=== PATIENT | female | born 2000 | race Caucasian/White ===

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

== ENCOUNTER 2019-06-23 01:33 | Emergency (ER) | payer BC, OTHER ==
[2019-06-23] MEDS ORDERED: Ketorolac 30 MG/ML SDV IM ONE (02:49)
--- NOTE | 2019-06-23 02:55 | EDM.PDOC ---
ED HPI GENERAL MEDICAL PROBLEM - General Chief Complaint: Headache Stated Complaint: MIGRAINE Time Seen by Provider: 06/23/19 01:45 Source of Information: Reports: Patient, RN, RN Notes Reviewed History Limitations: Reports: No Limitations - History of Present Illness INITIAL COMMENTS - FREE TEXT/NARRATIVE: Patient presents to ER with complaint of migraine headache. Patient states the headache began 4-6 hours ago, she has used aspirin at home without help. Patient states she is sensitive to light, but sound is okay. Patient admits to nausea at times, no vomiting. Patient states she has had migraine headaches in the past, but is not on any medications for them. Onset: Today, Sudden Frontal Headache Pain Score (Numeric/FACES): 5 - Related Data Allergies Allergy/AdvReac Type Severity Reaction Status Date / Time No Known Allergies Allergy Verified 06/23/19 01:47 Home Meds: Home Meds . [No Known Home Meds] 07/13/17 [History] Past Medical History [employer] History: Reports: Spontaneous Neurological History: Reports: Migraines - Past Surgical History HEENT Surgical History: Reports: Tonsillectomy Social & Family History - Family History Family Medical History: Noncontributory Neurological: Reports: Migraines - Tobacco Use Smoking Status *Q: Current Every Day Smoker Years of Tobacco use: 4 Packs/Tins Daily: 0.3 - Caffeine Use Caffeine Use: Reports: Coffee, Soda, Tea - Recreational Drug Use Recreational Drug Use: No ED ROS GENERAL - Review of Systems Review Of Systems: Comprehensive ROS is negative, except as noted in HPI. - Physical Exam Exam: See Below Exam Limited By: No Limitations General Appearance: Alert, WD/WN, No Apparent Distress Eye Exam: Bilateral Eye: EOMI, Normal Inspection Ears: Normal External Exam, Hearing Grossly Normal Nose: Normal Inspection Throat/Mouth: Normal Inspection, Normal Voice, No Airway Compromise Head Exam: Atraumatic, Normocephalic Neck: Normal Inspection, Supple, Non-Tender, Full Range of Motion Respiratory/Chest: No Respiratory Distress, Lungs Clear, Normal Breath Sounds, No Accessory Muscle Use, Chest Non-Tender Cardiovascular: Normal Peripheral Pulses, Regular Rate, Rhythm, No Edema, No Gallop, No JVD, No Murmur, No Rub GI/Abdominal: Normal Bowel Sounds, Soft, Non-Tender, No Organomegaly, No Distention, No Abnormal Bruit, No Mass (Female) Exam: Deferred Rectal (Female) Exam: Deferred Neuro Exam (Abbreviated): Alert, Oriented, CN II-XII Intact, Normal Cognition, Normal Gait, Normal Reflexes, No Motor/Sensory Deficits Back Exam: Normal Inspection, Full Range of Motion, NT Extremities: Normal Inspection, Normal Range of Motion, Non-Tender, No Pedal Edema, Normal Capillary Refill Psychiatric: Normal Affect, Normal Mood Skin Exam: Warm, Dry, Intact, Normal Color, No Rash Course - Vital Signs Last Recorded V/S: Last Vital Signs Temp 96.8 F 06/23/19 03:15 Pulse 88 06/23/19 03:15 Resp 18 06/23/19 03:15 BP 129/67 06/23/19 03:15 Pulse Ox 99 06/23/19 03:15 - Orders/Labs/Meds Labs: Laboratory Tests 06/23/19 06/23/19 Range/Units 02:25 02:25 Urine Color Yellow (YELLOW) Urine Appearance Clear (CLEAR) Urine pH 5.0 (5.0-9.0) Ur Specific [place] 1.015 (1.005-1.030) Urine Protein Negative (NEGATIVE) Urine Glucose (UA) Negative (NEGATIVE) Urine Ketones Negative (NEGATIVE) Urine Occult Blood Negative (NEGATIVE) Urine Nitrite Negative (NEGATIVE) Urine Bilirubin Negative (NEGATIVE) Urine Urobilinogen 0.2 (0.2-1.0) mg/dL Ur Leukocyte Esterase Negative (NEGATIVE) Urine HCG, Qual Negative Meds: Medications Discontinued Medications Generic Name Dose Route Start Last Admin Trade Name Freq PRN Reason Stop Dose Admin Ketorolac Tromethamine 30 mg 06/23/19 02:49 06/23/19 02:59 Toradol IM 06/23/19 02:50 30 mg ONETIME ONE Administration Departure - Departure Time of Disposition: 03:20 Disposition: Home, Self-Care 01 Condition: Fair Clinical Impression: Migraine - Discharge Information *PRESCRIPTION DRUG MONITORING PROGRAM REVIEWED*: No *COPY OF PRESCRIPTION DRUG MONITORING REPORT IN PATIENT JOSE LUIS: No Instructions: Migraine Headache, [id number] Forms: ED Department Discharge Additional Instructions: take Benadryl when you get home drink plenty of fluids Follow-up with your primary care provider if no improvement with headache Return to the ER with any worsening of symptoms Sepsis Event Note - Evaluation Sepsis Screening Result: No Definite Risk - Focused Exam Vital Signs: Vital Signs Temp Pulse Resp BP Pulse Ox 06/23/19 03:15 96.8 F 88 18 129/67 99 06/23/19 01:36 96.2 F 86 17 141/75 H 100 Date Exam was Performed: 06/23/19 Time Exam was Performed: 03:20
[2019-06-23 03:16] VITALS: BP 129/67; PULSE 88
== END 2019-06-23 03:25 | disposition home or self-care (01) ==
LOC: DL.ED 01:33
DX: G43.909 Migraine, unspecified, not intractable, without status migrainosus (principal); F17.210 Nicotine dependence, cigarettes, uncomplicated
CPT/HCPCS: 81003; 81025; 96372; 99283; J1885

== ENCOUNTER 2019-07-22 14:09 | Emergency (ER) | payer BC ==
[2019-07-22 14:21] VITALS: BP 123/67; PULSE 92
--- NOTE | 2019-07-22 14:39 | EDM.PDOC ---
<Daphne Gannon - Last Filed: 07/22/19 14:52> ED HPI GENERAL MEDICAL PROBLEM - General Chief Complaint: Headache Stated Complaint: MIGRAINE Time Seen by Provider: 07/22/19 14:25 Source of Information: Reports: Patient History Limitations: Reports: No Limitations - History of Present Illness INITIAL COMMENTS - FREE TEXT/NARRATIVE: Patient presents to the ED by private vehicle with concerns of headache for the past 3 days. The patient states that she has been having migraines every other day for the past 1 month. These migraines typically last half to one full day. She describes pain as frontal, 3/10, throbbing. She denies knowledge of any alleviating or aggravating factors. The patient states that tylenol and ibuprofen do not alleviate the pain. 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 She also admits to occasional smoking. She denies frequent consumption of caffeine. She admits to use of ibuprofen or tylenol whenever she needs this for her headaches but cannot recall how often a week she will take this on average. The patient admits to occasional sinus congestion usually in the mornings upon waking. The patient reports that she does have an appointment with Teodora Carrillo NP on Saturday to discuss her headaches. The patient did present to the ED on 06/23/2019 with migraine-type headaches and was treated with toradol. The patient states today that the toradol did not provide any pain relief. Onset Date: 07/19/19 Duration: Constant Location: Reports: Head Quality: Reports: Throbbing Severity: Moderate Improves with: Reports: None Worsens with: Reports: None Associated Symptoms: Reports: No Other Symptoms Head Pain Score (Numeric/FACES): 3 - Related Data Allergies Allergy/AdvReac Type Severity Reaction Status Date / Time No Known Allergies Allergy Verified 07/22/19 14:21 Home Meds: Home Meds . 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 Neurological History: Reports: Migraines - Past Surgical History HEENT Surgical History: Reports: Tonsillectomy Social & Family History - Family History Family Medical History: Noncontributory Neurological: Reports: Migraines - Tobacco Use Smoking Status *Q: Current Some Day Smoker Years of Tobacco use: 4 Packs/Tins Daily: 0.1 - Caffeine Use Caffeine Use: Reports: Coffee, Soda, Tea - Recreational Drug Use Recreational Drug Use: No ED ROS GENERAL - Review of Systems Review Of Systems: See Below Constitutional: Denies: Fever HEENT: Reports: Glasses GI/Abdominal: Denies: Abdominal Pain Musculoskeletal: Denies: Neck Pain Neurological: Reports: Headache. Denies: Dizziness - Physical Exam Exam: See Below Exam Limited By: No Limitations General Appearance: Alert, No Apparent Distress Eye Exam: Bilateral Eye: PERRL Ears: Normal External Exam, Normal Canal, Hearing Grossly Normal, Normal TMs Nose: Normal Inspection, Normal Mucosa Throat/Mouth: Normal Inspection Head Exam: Atraumatic, Normocephalic Neck: Full Range of Motion Respiratory/Chest: No Respiratory Distress, Lungs Clear, Normal Breath Sounds Cardiovascular: Regular Rate, Rhythm, No Murmur Neuro Exam (Abbreviated): Oriented, No Motor/Sensory Deficits Psychiatric: Normal Affect Course - Vital Signs Last Recorded V/S: Last Vital Signs Temp 98.8 F 07/22/19 14:18 Pulse 92 07/22/19 14:18 Resp 14 07/22/19 14:18 BP 123/67 07/22/19 14:18 Pulse Ox 100 07/22/19 14:18 Departure - Departure Time of Disposition: 14:53 Disposition: Home, Self-Care 01 Condition: Good Clinical Impression: Headache above the eye region - Discharge Information *PRESCRIPTION DRUG MONITORING PROGRAM REVIEWED*: Not Applicable *COPY OF PRESCRIPTION DRUG MONITORING REPORT IN PATIENT JOSE LUIS: Not Applicable Instructions: Migraine Headache, [id number] Forms: ED Department Discharge Additional Instructions: Rx: Naprosyn, diphenhydramine Recommend eye examination, follow-up with PCP on Saturday to discuss headaches Headache diary Avoid chocolates, caffeine, smoking, as potential triggers for headaches Sepsis Event Note - Evaluation Sepsis Screening Result: No Definite Risk - Focused Exam Vital Signs: Vital Signs Temp Pulse Resp BP Pulse Ox 07/22/19 14:18 98.8 F 92 14 123/67 100 Date Exam was Performed: 07/22/19 Time Exam was Performed: 14:52 <Yousif Church - Last Filed: 07/22/19 15:03> Course - Re-Assessments/Exams Free Text/Narrative Re-Assessment/Exam: 07/22/19 15:03 I personally performed or re-performed the physical examination and medical decision making. I have verified all student documentation or findings, including history, physical exam and/or medical decision making. Sepsis Event Note - Focused Exam Date Exam was Performed: 07/22/19 Time Exam was Performed: 15:03
--- NOTE | 2019-07-22 14:58 | CR ---
EXAMINATION: Sinus Comp Min 3V SEX: Female AGE: 19 years CLINICAL HISTORY: 19-year-old female complaining of recurring FRONTAL HEADACHES. INTERPRETATION: Negative. 1. Symmetric clear pneumatization of the paranasal and mastoid sinuses. 2. No mucoperiosteal inflammation, antral mass lesion or pathologic air-fluid levels. 3. Nasal septum is straight in the midline. Symmetric normal nonedematous nasal turbinates. 4. No foreign bodies. 5. No facial bone fractures. Satisfactory symmetric dental occlusion.
== END 2019-07-22 15:02 | disposition home or self-care (01) ==
LOC: DL.ED 14:09
DX: R51 Headache (principal); F17.210 Nicotine dependence, cigarettes, uncomplicated; Z98.890 Other specified postprocedural states
CPT/HCPCS: 99284-25

== ENCOUNTER 2019-12-29 09:02 | Emergency (ER) | payer BC, OTHER ==
--- NOTE | 2019-12-29 09:13 | EDM.PDOC ---
ED HPI GENERAL MEDICAL PROBLEM - General Chief Complaint: Lower Extremity Injury/Pain Stated Complaint: [id number] DISLOCATED RIGHT KNEE Time Seen by Provider: 12/29/19 09:11 Source of Information: Reports: Patient, Old Records, RN, RN Notes Reviewed History Limitations: Reports: No Limitations - History of Present Illness INITIAL COMMENTS - FREE TEXT/NARRATIVE: Pt presents to ER with c/o right knee pain. She states that she was at a alliance party on Saturday, December 24, when she climbed up on a tailgate and her right knee cap popped out of place causing her to fall to the ground. She states that they put it back into place, but it is still hurting and feels like it could slide back out of place with any little movement of the knee. Denies any other injury. Onset: Sudden Onset Date: 12/25/19 Duration: Resolved Prior to Arrival Location: Reports: Lower Extremity, Right Quality: Reports: Ache Severity: Moderate Improves with: Reports: Immobilization Worsens with: Reports: Movement Associated Symptoms: Reports: No Other Symptoms Right Knee Pain Score (Numeric/FACES): 7 - Related Data Allergies Allergy/AdvReac Type Severity Reaction Status Date / Time No Known Allergies Allergy Verified 12/29/19 09:16 Home Meds: Home Meds . 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 ED EXAM, GENERAL - Physical Exam Exam: See Below Exam Limited By: No Limitations General Appearance: Alert, No Apparent Distress, Obese Respiratory/Chest: No Respiratory Distress Cardiovascular: Normal Peripheral Pulses Extremities: Normal Capillary Refill, Joint Swelling (Mild swelling of right knee with laxity of the patella to lateral distraction, and generalized knee tenderness. No visible bruising, redness, or deformity. Unable to assess ACL due to pain and decreased ROM.), Limited Range of Motion (Rt knee due to pain.). No: Increased Warmth, Redness Neurological: Alert, Oriented, No Motor/Sensory Deficits Psychiatric: Normal Mood Skin Exam: Warm, Dry, Intact, Normal Color, No Rash ED TRAUMA EXTREMITY PROCEDURES - Splinting Right Lower Extremity Splint Site: Rt knee Pre-Procedure NV Status: Normal Post-Procedure NV Status: Normal Splint Material: Velcro Splint Design: Knee Immobilizer Applied & Form Fitted By: Nurse Provider Post-Splint Application NV Check: NV Status Normal, Good Position Complications: No Course - Vital Signs Last Recorded V/S: Last Vital Signs Temp 98.0 F 12/29/19 09:12 Pulse 99 12/29/19 09:12 Resp 18 12/29/19 09:12 BP 132/70 12/29/19 09:12 Pulse Ox 100 12/29/19 09:12 - Orders/Labs/Meds Orders: Active Orders 24 hr Category Date Time Status Immobilizer [RC] ASDIRECTED Care 12/29/19 09:17 Ordered Departure - Departure Time of Disposition: 09:23 Disposition: Home, Self-Care 01 Condition: Good Clinical Impression: Subluxation of right patella Qualifiers: Encounter type: initial encounter Qualified Code(s): S83.001A - Unspecified subluxation of right patella, initial encounter - Discharge Information *PRESCRIPTION DRUG MONITORING PROGRAM REVIEWED*: Not Applicable *COPY OF PRESCRIPTION DRUG MONITORING REPORT IN PATIENT JOSE LUIS: Not Applicable Instructions: Patellar Dislocation and Subluxation, Patellar Dislocation and Subluxation, Phase I Rehab-SportsMed, How to Use a Knee Immobilizer, [id number] Forms: ED Department Discharge Additional Instructions: Rx: Naprosyn 500mg *Take with meals. Wear knee immobilizer for 2 weeks. May remove to sleep and shower. Follow up in clinic in 2 week for recheck and referral to orthopedic surgeon if needed. Sepsis Event Note (ED) - Focused Exam Vital Signs: Vital Signs Temp Pulse Resp BP Pulse Ox 12/29/19 09:12 98.0 F 99 18 132/70 100 - My Orders Last 24 Hours: My Active Orders 12/29/19 09:17 Immobilizer [RC] ASDIRECTED - Assessment/Plan Last 24 Hours: My Active Orders 12/29/19 09:17 Immobilizer [RC] ASDIRECTED
[2019-12-29 09:16] VITALS: BP 132/70; PULSE 99
== END 2019-12-29 09:55 | disposition home or self-care (01) ==
LOC: DL.ED 09:02
DX: S83.001A Unspecified subluxation of right patella, initial encounter (principal); E66.9 Obesity, unspecified; Z68.41 Body mass index [BMI] 40.0-44.9, adult; W17.89XA Other fall from one level to another, initial encounter
CPT/HCPCS: 99283

== ENCOUNTER 2020-08-26 21:25 | Emergency (ER) | payer SELFPAY ==
[2020-08-26] MEDS ORDERED: Benzonatate 100 MG Cap PO ONE (21:26)
[2020-08-26 21:55] VITALS: BP 111/65; PULSE 104
[2020-08-26 22:27] LABS: CORONAVIRUS COVID-19 NAA POSITIVE (NEGATIVE)
[2020-08-26] MEDS ORDERED: Dexamethasone 4 MG/ML SDV IM ONE (22:56)
--- NOTE | 2020-08-26 23:03 | EDM.PDOC ---
ED HPI GENERAL MEDICAL PROBLEM - General Chief Complaint: Respiratory Problem Stated Complaint: COUGH,RUNNY, STUFFY NOSE, HEADACHE, CHILLS Time Seen by Provider: 08/26/20 22:00 Source of Information: Reports: Patient, RN, RN Notes Reviewed History Limitations: Reports: No Limitations - History of Present Illness INITIAL COMMENTS - FREE TEXT/NARRATIVE: Patient presents to the ED via personal vehicle with complaints of general malaise, cough, and sore throat. The patient states her symptoms began one day ago and have progressively worsened in that time. Additionally, she attests to shaking chills, headache, fatigue, and mild shortness of breath with exertion. She has not taken any medication for her symptoms. She denies a history of COVID and has not received any COVID vaccination. She denies contact with persons diagnosed with an active COVID infection. She denies tobacco, alcohol, or recreational drug use. - Related Data Allergies Allergy/AdvReac Type Severity Reaction Status Date / Time No Known Allergies Allergy Verified 12/29/19 09:16 Home Meds: Home Meds . 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 Musculoskeletal History: Reports: None Neurological History: Reports: Migraines Psychiatric History: Reports: None Endocrine/Metabolic History: Reports: Obesity/BMI 30+ Hematologic History: Reports: None Immunologic History: Reports: None Oncologic (Cancer) History: Reports: None Dermatologic History: Reports: None - Infectious Disease History Infectious Disease History: Reports: None - Past Surgical History Head Surgeries/Procedures: Reports: None HEENT Surgical History: Reports: Tonsillectomy Social & Family History - Family History Family Medical History: No Pertinent Family History Neurological: Reports: Migraines - Tobacco Use Tobacco Use Status *Q: Never Tobacco User - Caffeine Use Caffeine Use: Reports: None - Recreational Drug Use Recreational Drug Use: No - Living Situation & Occupation Living situation: Reports: with Family ED ROS GENERAL - Review of Systems Review Of Systems: Comprehensive ROS is negative, except as noted in HPI. ED EXAM, GENERAL - Physical Exam Exam: See Below Exam Limited By: No Limitations General Appearance: Alert, Obese, Other (Ill appearing) Eye Exam: Bilateral Eye: Conjunctival Injection, EOMI, PERRL (3mm) Ears: Normal External Exam Ear Exam: Bilateral Ear: Auricle Normal, Canal Normal, TM normal Nose: Normal Mucosa, No Blood, Clear Rhinorrhea Throat/Mouth: Normal Lips, Normal Teeth, Normal Gums, Normal Voice, No Airway Compromise. No: Normal Oropharynx (Dry mucous membranes) Head: Atraumatic, Normocephalic Neck: Normal Inspection, Supple, Non-Tender, Full Range of Motion. No: Lymphadenopathy (L), Lymphadenopathy (R) Respiratory/Chest: No Respiratory Distress, No Accessory Muscle Use, Chest Non- Tender, Rales (To right mid-lobe). No: Crackles, Rhonchi, Wheezing Cardiovascular: Regular Rate, Rhythm, No Edema, No Gallop, No JVD, No Murmur, No Rub, Tachycardia Peripheral Pulses: 2+: Radial (L), Radial (R) GI/Abdominal: Normal Bowel Sounds, Soft, Non-Tender, No Distention, No Mass, Pelvis Stable (Female) Exam: Deferred Rectal (Female) Exam: Deferred Back Exam: Normal Inspection, Full Range of Motion Extremities: Normal Inspection, Normal Range of Motion, Non-Tender, Normal Capillary Refill, No Pedal Edema Neurological: Alert, Oriented, CN II-XII Intact, Normal Cognition, Normal Gait, No Motor/Sensory Deficits Psychiatric: Normal Affect, Normal Mood Skin Exam: Warm, Dry, Intact, Normal Color, No Rash. No: Ecchymosis, Erythema, Jaundice, Mottled, Pallor, Petechiae Course - Vital Signs Last Recorded V/S: Last Vital Signs Temp 98.1 F 08/26/20 21:35 Pulse 104 H 08/26/20 21:35 Resp 18 08/26/20 21:35 BP 111/65 08/26/20 21:35 Pulse Ox 99 08/26/20 21:35 - Orders/Labs/Meds Labs: Laboratory Tests 08/26/20 Range/Units 21:44 Influenza Type A RNA Negative (NEGATIVE) Influenza Type B RNA Negative (NEGATIVE) SARS-CoV-2 RNA ([facility]) Positive H (NEGATIVE) Meds: Medications Discontinued Medications Generic Name Dose Route Start Last Admin Trade Name Freq PRN Reason Stop Dose Admin Benzonatate Confirm 08/26/20 23:21 08/27/20 00:07 Benzonatate 100 Mg Cap Administered 08/26/20 23:22 Not Given Dose 300 mg .ROUTE .STK-MED ONE Benzonatate 100 mg 08/26/20 21:26 Benzonatate 100 Mg Cap PO 08/26/20 21:27 .STK-MED ONE Dexamethasone 6 mg 08/26/20 22:56 08/27/20 00:07 Dexamethasone 4 Mg/Ml Sdv IM 08/26/20 22:57 6 mg ONETIME ONE Administration - Radiology Interpretation Free Text/Narrative:: [facility] [place] [facility] Final Radiology Report Call: [phone] assistance Online chat: [email or web address] Name: WERNER YANG Age: 20Years F Date: 08/26/2020 SSN: -- : 2000 Study: CR CHEST 1V FRONTAL Requesting Physician: Christiana Duvall Images: 1 Addl Studies: Provided Clinical History: COVID +; Rale in right middle lobe Contrast: Contrast Medium: Contrast Amount: Contrast Method: CONFIDENTIALITY STATEMENT This report is intended only for use by the referring physician, and only in accordance with law. If you received this in error, call [phone]. Page 1 of 1 PROCEDURE INFORMATION: Exam: XR Chest Exam date and time: 08/26/2020 11:22 PM Age: 20 years old Clinical indication: Other: Covid; Additional info: Covid +; Rale in right middle lobe TECHNIQUE: Imaging protocol: XR of the chest. Views: 1 view. COMPARISON: CR Chest 2V 07/14/2017 12:53 AM FINDINGS: Lungs: Unremarkable. No consolidation. Pleural spaces: Unremarkable. No pleural effusion. No pneumothorax. Heart/Mediastinum: Unremarkable. No cardiomegaly. Bones/joints: Unremarkable. IMPRESSION: No acute findings. Thank you for allowing us to participate in the care of your patient. Dictated and Authenticated by: Everett León DO 08/26/2020 11:43 PM Central Time ([place] & [place]) - Re-Assessments/Exams Free Text/Narrative Re-Assessment/Exam: 08/26/20 COVID positive; Influenza negative. CXR unremarkable for acute processes, no indication of ground glass opacities. Will treat shortness of breath with Dexamethasone and cough with Tessalon Perles. As patient is not experiencing gastrointestinal symptoms, will refrain from blood work at this time. Discussed supportive cares for URI from COVID, as well as expected length of illness and guidelines for quarantine. Red flag signs and symptoms which would warrant reevaluation reviewed. Patient verbalized understanding and agreement with the plan of care. Departure - Departure Time of Disposition: 23:59 Disposition: Home, Self-Care 01 Condition: Good Clinical Impression: COVID-19 virus infection, Advice given about COVID-19 virus infection - Discharge Information *PRESCRIPTION DRUG MONITORING PROGRAM REVIEWED*: Not Applicable *COPY OF PRESCRIPTION DRUG MONITORING REPORT IN PATIENT JOSE LUIS: Not Applicable Instructions: COVID-19 Frequently Asked Questions, COVID-19 Vaccine Information, What You Should Know About COVID-19 to Protect Yourself and Others - [facility], 10 Things You Can Do to Manage Your COVID-19 Symptoms at Home - [facility] Forms: ED Department Discharge Additional Instructions: Rx: Tessalon Rx: Dexamethasone 1.) Follow the [facility] guidelines regarding quarantine with an active COVID infection; quarantine is recommended for 14 days from onset of symptoms. 2.) You may take acetaminophen (Tylenol) 650mg every six hours for headache, body aches, or fever. You may also take ibuprofen (Motrin/Advil) 400mg every six hours for headache, body aches, fever. You may stagger these medications so you are taking a dose every three hours. 3.) Drink plenty of water to stay hydrated; small frequent sips are best. 4.) Eat a bland, stomach-friendly diet; avoid spicy, greasy, high-fat foods Sepsis Event Note (ED) - Evaluation Sepsis Screening Result: No Definite Risk
[2020-08-26] MEDS ORDERED: Benzonatate 100 MG Cap ONE (23:21)
--- NOTE | 2020-08-26 23:43 | CR ---
PROCEDURE INFORMATION: Exam: XR Chest Exam date and time: 08/26/2020 11:22 PM Age: 20 years old Clinical indication: Other: Covid; Additional info: Covid +; Rale in right middle lobe TECHNIQUE: Imaging protocol: XR of the chest. Views: 1 view. COMPARISON: CR Chest 2V 07/14/2017 12:53 AM FINDINGS: Lungs: Unremarkable. No consolidation. Pleural spaces: Unremarkable. No pleural effusion. No pneumothorax. Heart/Mediastinum: Unremarkable. No cardiomegaly. Bones/joints: Unremarkable. IMPRESSION: No acute findings.
== END 2020-08-27 00:10 | disposition home or self-care (01) ==
LOC: DL.ED 21:25
DX: U07.1 COVID-19 (principal); E66.9 Obesity, unspecified; Z68.30 Body mass index [BMI] 30.0-30.9, adult
CPT/HCPCS: 0240U; 71045; 96372; 99283; 99285-25; A9270-GY; J1100

== ENCOUNTER 2024-03-02 00:05 | Emergency (ER) | payer SELFPAY ==
[2024-03-02 00:29] VITALS: BP 126/69; PULSE 88
[2024-03-02] MEDS: Dexamethasone 4 MG/ML SDV PO ONE (00:40)
[2024-03-02] MEDS: Amoxicillin 500 MG Cap PO ONE (01:07)
== END 2024-03-02 01:10 | disposition home or self-care (01) ==
LOC: DL.ED 00:05
DX: J02.9 Acute pharyngitis, unspecified (principal); E66.9 Obesity, unspecified; Z68.29 Body mass index [BMI] 29.0-29.9, adult; Z86.16 Personal history of COVID-19; F17.200 Nicotine dependence, unspecified, uncomplicated
CPT/HCPCS: 87081; 87430; 99283; A9270-GY; J1100

== ENCOUNTER 2024-07-23 09:40 | Emergency (ER) | payer SELFPAY ==
[2024-07-23 09:59] VITALS: BP 131/76; PULSE 90
== END 2024-07-23 10:11 | disposition home or self-care (01) ==
LOC: DL.ED 09:40
DX: O9A.211 Injury, poisoning and certain other consequences of external causes complicating pregnancy, first trimester (principal); S09.90XA Unspecified injury of head, initial encounter; Z86.16 Personal history of COVID-19; W17.89XA Other fall from one level to another, initial encounter; Z3A.01 Less than 8 weeks gestation of pregnancy
CPT/HCPCS: 99283

== ENCOUNTER 2025-03-15 11:28 | Inpatient (IN) | payer MEDICAID ==
[2025-03-15 13:59] LABS: APPEARANCE,URINE CLEAR (CLEAR); GLUCOSE,URINE NEGATIVE (NEGATIVE); OCCULT BLOOD,URINE NEGATIVE (NEGATIVE)
[2025-03-15] MEDS ORDERED: Oxytocin/Lactated Ringers 30 UNIT/500 ML BAG IV SCH (14:15)
[2025-03-15] MEDS ORDERED: Carboprost Tromethamine 250 MCG/1 mL Vial IM PRN (14:15)
[2025-03-15] MEDS ORDERED: Sodium Chloride 0.9% 10 ML Syringe FLUSH PRN (14:15)
[2025-03-15 14:22] LABS: CREATININE,URINE RAND < 13.00 mg/dL (No establ ref range); PROTEIN,URINE RANDOM < 6.0 mg/dL (0.0-11.9)
[2025-03-15 15:29] LABS: PLATELET COUNT,PLT 348.0 10^3/uL (150-450); RED BLOOD CELL COUNT 4.66 10^6/uL (4.2-5.4); WHITE BLOOD CELL COUNT,WBC 14.7 10^3/uL (5.0-10.0)
[2025-03-15 15:48] LABS: ALANINE AMINOTRANSFERASE,ALT 24.0 U/L (14-59); ASPARTATE AMNIOTRANSFERASE,AST 24.0 U/L (15-37); BILIRUBIN TOTAL 0.6 mg/dL (0.2-1.0); BLOOD UREA NITROGEN,BUN 10.0 mg/dL (7-18); CARBON DIOXIDE,CO2 24.0 mmol/L (21-32); CHLORIDE,CL 103.0 mmol/L (98-107); CREATININE 0.54 mg/dL (0.55-1.02); EST CRCL DRUG DOSING (CG) 143.31 mL/min; GLUCOSE RANDOM 110.0 mg/dL (70-99); POTASSIUM,K 4.1 mmol/L (3.5-5.1); PROTEIN TOTAL,TP 7.3 g/dL (6.4-8.2); SODIUM,NA 138.0 mmol/L (136-145)
[2025-03-15 15:49] LABS: A/G RATIO 0.52; ESTIMATED GFR 131.0 mL/min (>=60)
[2025-03-15] MEDS: Lactated Ringers 1,000 ML IV SCH (15:50)
[2025-03-15] MEDS: Oxytocin/Normal Saline 30 UNIT/500 ML BAG IV SCH (15:52)
[2025-03-16] MEDS: Nalbuphine HCl 10 MG/ 1ML Amp IM PRN (00:52)
[2025-03-16] MEDS: Lactated Ringers 1,000 ML IV ONE (03:05)
[2025-03-16] MEDS: Ondansetron 4 MG/2 ML SDV IVPUSH PRN (06:35)
[2025-03-16 08:23] LABS: PLATELET COUNT,PLT 303.0 10^3/uL (150-450); RED BLOOD CELL COUNT 4.32 10^6/uL (4.2-5.4); WHITE BLOOD CELL COUNT,WBC 17.7 10^3/uL (5.0-10.0)
[2025-03-16 08:42] LABS: ALANINE AMINOTRANSFERASE,ALT 18.0 U/L (14-59); ASPARTATE AMNIOTRANSFERASE,AST 12.0 U/L (15-37); BLOOD UREA NITROGEN,BUN 8.0 mg/dL (7-18); CREATININE 0.63 mg/dL (0.55-1.02); EST CRCL DRUG DOSING (CG) 122.83 mL/min; LACTATE DEHYDROGENASE,LDH 103.0 U/L (81-234)
[2025-03-16 08:49] LABS: ESTIMATED GFR 126.0 mL/min (>=60)
[2025-03-16 11:45] LABS: APPEARANCE,URINE CLEAR (CLEAR); GLUCOSE,URINE NEGATIVE (NEGATIVE); OCCULT BLOOD,URINE NEGATIVE (NEGATIVE)
[2025-03-16 12:01] LABS: CREATININE,URINE RAND 93.68 mg/dL (No establ ref range); PROTEIN CREATININE RATIO,URINE 121.7 mg/g (<150.0); PROTEIN,URINE RANDOM 11.4 mg/dL (0.0-11.9)
[2025-03-16] MEDS ORDERED: ePHEDrine 50 MG/ML SDV IVPUSH PRN (15:55)
[2025-03-16] MEDS ORDERED: Ropivacaine 200 MG in Premix Bag 1 BAG EPIDUR SCH (16:00)
[2025-03-17] MEDS ORDERED: Witch Hazel Medicated Pads 100/Jar TOP PRN (05:59)
[2025-03-17] MEDS ORDERED: Oxytocin 10 Units/1 ML SDV IM PRN (05:59)
[2025-03-17] MEDS: Prenatal Multivitamin with Calcium/Folic Acid/Iron Tab PO SCH (08:36)
[2025-03-17] MEDS: Benzocaine/Menthol 20%-0.5% Spray 78 GM Cannister TOP PRN (08:37)
[2025-03-18 06:52] LABS: PLATELET COUNT,PLT 244.0 10^3/uL (150-450); RED BLOOD CELL COUNT 3.43 10^6/uL (4.2-5.4); WHITE BLOOD CELL COUNT,WBC 14.9 10^3/uL (5.0-10.0)
[2025-03-18 10:03] VITALS: BP 135/78
[2025-03-18 10:04] VITALS: PULSE 80
== END 2025-03-18 10:25 | disposition home or self-care (01) | DRG 807 ==
LOC: DL.OBCHECK 11:28 → DL.OB 14:15 → OBSVTOIN 03-17 05:31 → DL.MS 03-18 07:36
PROVIDERS: ADMIT Family Medicine; ATTEND Family Medicine
PROC: 10H07YZ Insertion of Other Device into Products of Conception, Via Natural or Artificial Opening (ICD-10-PCS; principal; 2025-03-15)
PROC: 3E033VJ Introduction of Other Hormone into Peripheral Vein, Percutaneous Approach (ICD-10-PCS; principal; 2025-03-15)
PROC: 10E0XZZ Delivery of Products of Conception, External Approach (ICD-10-PCS; principal; 2025-03-15)
PROC: 10907ZC Drainage of Amniotic Fluid, Therapeutic from Products of Conception, Via Natural or Artificial Opening (ICD-10-PCS; principal; 2025-03-15)
PROC: 3E0R3BZ Introduction of Anesthetic Agent into Spinal Canal, Percutaneous Approach (ICD-10-PCS; principal; 2025-03-15)
DX: O99.214 Obesity complicating childbirth (principal); Z37.0 Single live birth; Z3A.39 39 weeks gestation of pregnancy; Z90.49 Acquired absence of other specified parts of digestive tract; Z98.890 Other specified postprocedural states; Z79.899 Other long term (current) drug therapy; Z86.16 Personal history of COVID-19; Z87.891 Personal history of nicotine dependence
CPT/HCPCS: 36415; 51702; 59409; 59414; 80053; 81003; 82274; 82565; 82570; 83615; 84112; 84156; 84450; 84460; 84520; 84550; 85027; 87210; A9270-GY; J2300; J2405; J2590; J7120